=== PATIENT | male | born 1955 | race Caucasian/White ===

== ENCOUNTER 2016-06-20 06:25 | Day surgery (SDC) | payer OTHER ==
[2016-06-19 15:22] VITALS: BMI 28.8
[2016-06-20 06:55] LABS: URINE APPEARANCE CLEAR; URINE BILIRUBIN NEGATIVE (NEGATIVE); URINE BLOOD NEGATIVE (NEGATIVE); URINE COLOR YELLOW; URINE GLUCOSE (UA) NEGATIVE (NEGATIVE); URINE KETONE NEGATIVE (NEGATIVE); URINE LEUK ESTERASE NEGATIVE (NEGATIVE); URINE NITRITE NEGATIVE (NEGATIVE); URINE PROTEIN NEGATIVE (NEGATIVE); URINE UROBILINOGEN NEGATIVE E.U./dl (0.2-1.0)
[2016-06-20] MEDS ORDERED: BUPIVACAINE HCL/PF 0.5% (5MG/ML) 10 ML VIAL ONE (07:24)
[2016-06-20] MEDS ORDERED: LIDOCAINE 1%/EPI 1:100000 (50 ML MULTI DOSE VIAL) ONE (07:24)
[2016-06-20] MEDS ORDERED: SUCCINYLCHOLINE CHLORIDE 200 MG/10 ML VIAL ONE (07:25)
[2016-06-20] MEDS ORDERED: ePHEDrine SULFATE 50 MG/1 ML AMPULE ONE (07:25)
[2016-06-20] MEDS ORDERED: PROPOFOL 20 ML ONE ×5 (07:25)
[2016-06-20] MEDS ORDERED: MIDAZOLAM HCL 2 MG/2 ML SINGLE DOSE VIAL ONE (07:25)
[2016-06-20] MEDS ORDERED: KETOROLAC TROMETHAMINE 30 MG/1 ML VIAL ONE (07:34)
[2016-06-20] MEDS ORDERED: DEXAMETHASONE SOD PHOSPHATE 4 MG/1 ML VIAL ONE (07:34)
[2016-06-20] MEDS ORDERED: ceFAZolin SODIUM 1 GM VIAL ONE (07:34)
--- NOTE | 2016-06-20 07:57 | HP ---
[facility] - Chief Complaint Chief Complaint: left knee pain - Past Medical History Allergies/Adverse Reactions: Allergies Allergy/AdvReac Type Severity Reaction Status Date / Time No Known Drug Allergies Allergy Verified 06/20/16 07:13 - Current Medications Current Medications: Home Medications Medication Instructions Recorded Ascorbic Acid [Vitamin C -] 1,000 mg PO DAILY 06/19/16 Cholecalciferol (Vitamin D3) 1,000 unit PO DAILY 06/19/16 [Vitamin D3 -] Glucosamine/Chondroitin/Vit D3 1 each PO DAILY 06/19/16 [Orjnpyio-Uncnku-Odh D3 Tab] Underhill-3 Fatty Acids [Fish Oil] 300 mg PO DAILY 06/19/16 Omeprazole 20 mg PO HS 06/19/16 Vitamin B Complex [Super B-50 1 each PO DAILY 06/19/16 Complex Plus] Oxycodone HCl/Acetaminophen 1 - 2 tab PO Q6H #40 tab MDD 8 06/20/16 [Percocet 5-325 mg Tablet -] Satellite Physical Exam - Physical Examination Vital Signs: Vital Signs Period Temp Pulse Resp BP Sys/Zimmerman Pulse Ox Last 24 Hr 98.1 F 71 18 126/82 97 General Appearance: Well Nourished, Well Developed, Alert & Oriented x3 ENT: Clear Lung: Normal air movement Heart: Regular rate & rhythm Extremities: Other (left knee- +swelling, +ttp, decr rom, + mcmurrays, nvi MRI + mmt, lmt) Neurological: Intact, Alert, Oriented Satellite Impression/Plan - Impression/Plan Impression: left knee internal derangement Operative Procedure: left knee arthroscopy Date to be Performed: 06/20/16
[2016-06-20] MEDS ORDERED: ceFAZolin SODIUM 1 GM VIAL IVPB ONE (08:09)
--- NOTE | 2016-06-20 08:33 | OP ---
Operative Note - Note: Operative Date: 06/20/[facility] Pre-Operative Diagnosis: left knee internal derangement Operation: left knee arthroscopy with PMM Post-Operative Diagnosis: Same as Pre-op Surgeon: Derek Perdomo Anesthesiologist/PLUMBING ASSEMBLER: Bob Olivera Anesthesia: General, Local Specimens Removed: shavings Estimated Blood Loss (mls): 5 Operative Report Dictated: Yes
[2016-06-20] MEDS ORDERED: oxyCODONE HCL 5 MG TABLET PO PRN (08:59)
[2016-06-20] MEDS ORDERED: ONDANSETRON 4 MG/2 ML VIAL IVPUSH PRN (08:59)
[2016-06-20] MEDS ORDERED: LACTATED RINGERS SOLUTION 1,000 ML IV SCH (09:00)
--- NOTE | 2016-06-20 10:11 | SPEC ---
DATE OF OPERATION: 06/20/2016 OPERATION: Arthroscopy, left knee, with partial medial meniscectomy. PREOPERATIVE DIAGNOSIS: Internal derangement, left knee. POSTOPERATIVE DIAGNOSIS: Internal derangement, left knee. SURGEON: Derek Perdomo M.D. ANESTHESIA: General with LMA. CLOSURE: 4-0 nylon. COMPLICATIONS: None. CONDITION: To recovery room in stable condition. DESCRIPTION OF OPERATIVE PROCEDURE: Patient was taken to the operating room and general anesthesia with LMA was administered by the anesthesiologist. Left lower extremity was prepped and draped in usual sterile fashion. The supralateral and medial lateral infrapatellar portal sites were infiltrated with 1% Xylocaine with epinephrine. Supralateral portal was made with a 15 blade blunt trocar. The left knee was aspirated and inflated with a cocktail of 10 mL of 1% Xylocaine with 0.5% Marcaine and 20 mL of arthroscopic saline. Medial and lateral infrapatellar portals were then made with a 15 blade blunt trocar. The scope was placed in the lateral infrapatellar portal and up into the suprapatellar pouch. Pouch was visualized to be clean. The medial and lateral gutters were visualized to be clean. The undersurface of the patella and trochlea were visualized to be intact. With valgus stress on the knee, the medial compartment was entered and medial meniscus was visualized, probed, and found to have a complex tear of the posterior horn. This was debrided back to smooth and stable meniscal tissue using meniscal biters and athroscopic shaver. Medial femoral condyle was run and found to be intact as was the medial tibial plateau. At 90 degrees the ACL was visualized, probed and found to be intact. In the figure four position, the lateral compartment was entered. Lateral meniscus was visualized, probed and found to be intact. The lateral femoral condyle was run and found to be intact as was the lateral tibial plateau. The knee was irrigated with copious amounts of irrigation. The portals were closed with 4-0 nylon. Prior to closure of the supralateral portal, 20 mL of 0.5% Marcaine was infused through the outflow portal prior to pulling the cannula. Sterile pressure dressing was placed over the knee. Patient was awakened from anesthesia and transferred to recovery room in stable condition. No complications. Estimated blood loss was negligible. DEREK PERDOMO M.D. [id number]
[2016-06-20 10:48] VITALS: BP 118/79; PULSE 61; TEMP 97.8
--- NOTE | 2016-06-23 13:49 | PATH ---
Surgical Pathology Report Patient Name: JAYME SHUKLA Med. Rec. #: [id number] /Age/Gender: 1955 (Age: 61) / M Account: [id number] Location: [facility] SURGICAL Taken: 06/20/2016 Received: 06/20/2016 Reported: 06/23/2016 Physicians: Derek Perdomo M.D. 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 Electronically Signed Blu Allred M.D. Gross Description Received in formalin, labeled "left knee shavings" is a 3.8 x 3.5 x 0.4 cm aggregate of mccauley-yellow soft tissue fragments. A chain sales representative portion is submitted in one cassette. saudi/06/20/2016
== END 2016-06-20 10:51 | disposition home or self-care (01) ==
LOC: JASU-SURG 06:25
PROVIDERS: ATTEND Orthopaedic Surgery
PROC: 0SBD4ZZ Excision of Left Knee Joint, Percutaneous Endoscopic Approach (ICD-10-PCS; principal; 2016-06-20 08:00)
DX: M23.92 Unspecified internal derangement of left knee (principal)
CPT/HCPCS: 81003; 88304-TC; 94760

== ENCOUNTER 2024-10-06 06:32 | Day surgery (SDC) | payer OTHER ==
[2024-10-05 09:24] VITALS: BMI 28.5
[2024-10-06 12:38] VITALS: BP 103/69; PULSE 70; RESP 16; TEMP 97.7
== END 2024-10-06 12:24 | disposition home or self-care (01) ==
LOC: JASU-ENDO 06:32
PROVIDERS: ATTEND Internal Medicine Gastroenterology
PROC: 0DB78ZX Excision of Stomach, Pylorus, Via Natural or Artificial Opening Endoscopic, Diagnostic (ICD-10-PCS; 2024-10-06)
PROC: 0DB68ZX Excision of Stomach, Via Natural or Artificial Opening Endoscopic, Diagnostic (ICD-10-PCS; 2024-10-06)
PROC: 0DB38ZX Excision of Lower Esophagus, Via Natural or Artificial Opening Endoscopic, Diagnostic (ICD-10-PCS; principal; 2024-10-06 10:00)
DX: K21.00 Gastro-esophageal reflux disease with esophagitis, without bleeding (principal); K22.70 Barrett's esophagus without dysplasia
CPT/HCPCS: 82962; 88305-TC; 88342-TC